=== PATIENT | male | born 1995 | race Two or more races ===

== ENCOUNTER 2022-04-13 01:04 | Emergency (ER) | payer BC, OTHER ==
[~2022-04-13] VITALS: Ht 180.3 cm; Wt 113.4 kg
--- NOTE | 2022-04-13 01:19 | NUR ---
[id number] from drug rehab, c/o ble edema, and face swelling,possible allergic reaction from gabapentin and suboxone. Pt A/Ox4. Tolerating R/A well with no Resp distress. Connected pt to POX and monitor.
[2022-04-13] MEDS ORDERED: diphenhydrAMINE HCL 50 MG/ML VIAL ONE (01:23)
[2022-04-13] MEDS ORDERED: IV NS 0.9% 1,000 ML BAG IV ONE (01:30)
[2022-04-13] MEDS ORDERED: diphenhydrAMINE HCL 50 MG/ML VIAL IM ONE (01:30)
--- NOTE | 2022-04-13 01:33 | NUR ---
BLOOD COLLECTED AND SENT TO LAB
--- NOTE | 2022-04-13 01:40 | NUR ---
COSMETOLOGY TEACHER AT PT'S BEDSIDE
[2022-04-13 01:41] LABS: BASOPHILS # (AUTO) 0.1 K/uL (0.0-0.2); BASOPHILS % (AUTO) 0.7 % (0.0-2.0); EOSINOPHILS % (AUTO) 11.2 % (0.0-6.0); HEMATOCRIT 42 % (39-51); HEMOGLOBIN 13.9 g/dL (13.5-17.5); LYMPHOCYTES # (AUTO) 2.5 K/uL (0.8-4.8); LYMPHOCYTES % (AUTO) 32.1 % (20.0-44.0); MEAN CORPUSCULAR HGB CONC 33 g/dl (31.0-36.0); MEAN CORPUSCULAR VOLUME 84 fL (80-96); MONOCYTES % (AUTO) 13.1 % (2.0-12.0); NEUTROPHILS # (AUTO) 3.3 K/uL (1.8-8.9); NEUTROPHILS % (AUTO) 42.9 % (43.0-81.0); PLATELET COUNT (AUTO) 216 K/uL (150-450); RED BLOOD CELL COUNT(AUTO) 5.02 MIL/uL (4.5-6.0); WHITE BLOOD COUNT (AUTO) 7.8 K/uL (4.3-11.0)
[2022-04-13] MEDS ORDERED: ACETAMINOPHEN ES 500 MG TABLET ONE ×2 (01:45→01:47)
[2022-04-13] MEDS ORDERED: ONDANSETRON HCL/PF 4 MG/2 ML VIAL ONE (01:49)
[2022-04-13] MEDS ORDERED: ONDANSETRON HCL/PF - ER 4 MG/2 ML VIAL IV ONE (02:00)
[2022-04-13] MEDS ORDERED: ACETAMINOPHEN ES 500 MG TABLET PO ONE (02:00)
[2022-04-13] MEDS ORDERED: KETOROLAC TROMETHAMINE INJ 30 MG/ML VIAL IV ONE (02:00)
[2022-04-13] MEDS ORDERED: KETOROLAC TROMETHAMINE INJ 30 MG/ML VIAL ONE (02:01)
[2022-04-13 02:06] LABS: CALCIUM, SERUM 8.2 mg/dL (8.5-10.1); POTASSIUM 4.4 mmol/L (3.5-5.1)
[2022-04-13 02:13] LABS: ALBUMIN 3.4 g/dL (3.4-5.0); BILIRUBIN,TOTAL 0.3 mg/dL (0.2-1.0); TOTAL PROTEIN, SERUM 6.9 g/dL (6.4-8.2)
[2022-04-13] MEDS ORDERED: ONDA4TAB5 PO (02:51)
--- NOTE | 2022-04-13 03:05 | NUR ---
Written and verbal after care instructions given. Patient verbalizes understanding of instruction. IV removed. Catheter intact and site benign. Pressure and 4x4 applied to site. No bleeding noted.
--- NOTE | 2022-04-13 03:07 | NUR ---
CALLED THE [facility] AND SPOKE TO SHERRY; WILL HAVE NURSE CALL BACK FOR REPORT FOR DC
--- NOTE | 2022-04-13 03:34 | NUR ---
CALLED THE [facility] TO F/U WITH PT'S DC & TO GIVE REPORT. SPOKE TO DOMINIQUE AND STATED WILL HAVE NURSE RETURN CALL BACK.
--- NOTE | 2022-04-13 04:58 | NUR ---
PT WAS PICKED UP BY TRANSPORTATION FROM THE [facility] IN STABLE CONDITION; Written and verbal after care instructions given. Patient verbalizes understanding of instruction.
[2022-04-13 04:59] VITALS: BP 111/65
== END 2022-04-13 04:59 | disposition home or self-care (01) ==
LOC: ER 01:06
DX: R60.0 Localized edema (principal); R11.10 Vomiting, unspecified; I10 Essential (primary) hypertension; K21.9 Gastro-esophageal reflux disease without esophagitis; F15.10 Other stimulant abuse, uncomplicated
CPT/HCPCS: 99284; 96374; 71045; 96361; 96375; 85025; 80048; 80076; 36415; 96372; J1200; J1885; J2405 ×2; J7030